=== PATIENT | female | born 1955 | race Caucasian/White ===

== ENCOUNTER → 2017-09-03 | Outpatient (CLI) | payer OTHER | END | disposition home or self-care (01) | LOC: CFH 12:52 | PROVIDERS: ATTEND Nurse Practitioner Family | DX: Z12.31 Encounter for screening mammogram for malignant neoplasm of breast (principal) | CPT/HCPCS: G0202 ==

== ENCOUNTER 2019-04-20 10:29 | Outpatient (CLI) | payer OTHER | END 2019-04-20 23:59 | disposition home or self-care (01) | LOC: CFH 10:29 | PROVIDERS: ATTEND Surgery | DX: Z15.01 Genetic susceptibility to malignant neoplasm of breast (principal); Z80.3 Family history of malignant neoplasm of breast | CPT/HCPCS: A9585; C8908; C8937 ==

== ENCOUNTER 2019-10-08 11:07 | Outpatient (CLI) | payer OTHER | END 2019-10-08 23:59 | disposition home or self-care (01) | LOC: CFH 11:07 | PROVIDERS: ATTEND Surgery | DX: Z12.31 Encounter for screening mammogram for malignant neoplasm of breast (principal) | CPT/HCPCS: 77063; 77067 ==

== ENCOUNTER 2020-04-22 11:54 | Outpatient (CLI) | payer OTHER ==
[2020-04-22] MEDS ORDERED: GADOTERATE 7.5 MMOL/15 ML VIAL ONE (12:42)
== END 2020-04-22 23:59 | disposition home or self-care (01) ==
LOC: CFH 11:54
PROVIDERS: ATTEND Surgery
DX: Z12.39 Encounter for other screening for malignant neoplasm of breast (principal)
CPT/HCPCS: 77049; A9575; C8908

== ENCOUNTER → 2020-11-08 | Outpatient (CLI) | payer MEDICARE, OTHER | END | disposition home or self-care (01) | LOC: CFH 10:15 | PROVIDERS: ATTEND Surgery | DX: Z12.31 Encounter for screening mammogram for malignant neoplasm of breast (principal) | CPT/HCPCS: 77063; 77067 ==

== ENCOUNTER → 2021-05-04 | Outpatient (CLI) | payer MEDICARE, OTHER ==
[~2021-05-04] MED LIST: GADOTERATE 10 MMOL/20ML SYR ONE
== END | disposition home or self-care (01) ==
LOC: CFH 14:35
PROVIDERS: ATTEND Surgery
DX: Z15.01 Genetic susceptibility to malignant neoplasm of breast (principal); Z85.43 Personal history of malignant neoplasm of ovary; Z80.3 Family history of malignant neoplasm of breast
CPT/HCPCS: 77049; A9575; C8937; C8908